=== PATIENT | female | born 1985 | race Caucasian/White ===

== ENCOUNTER 2019-12-05 10:21 | Emergency (ER) | payer MEDICAID ==
[~2019-12-05] VITALS: Ht 170.2 cm; Wt 75.0 kg
[2019-12-05 12:10] LABS: CLARITY,URINE SLIGHTLY CLOUDY (Clear); COLOR,URINE STRAW (Yellow); GLUCOSE, URINE NEGATIVE (Neg); KETONES,URINE NEGATIVE (Neg); LEUKOCYTE ESTERASE ,URINE NEGATIVE (Neg); NITRITES, URINE NEGATIVE (Neg); OCCULT BLOOD,URINE NEGATIVE (Neg); PROTEIN,URINE NEGATIVE (Neg); UROBILINOGEN,URINE 0.2 E.U/dL (0.2-1.0)
[2019-12-05 12:31] LABS: UA COLLECTION TYPE CLN CATCH MIDSTREAM
[2019-12-05 12:32] LABS: BACTERIA,URINE 1+ /HPF (Neg); RBC,URINE 0-2 /HPF (0-2); SQUAMOUS EPITHELIAL CELL,UR MANY /LPF (FEW)
[2019-12-05 12:33] LABS: WBC,URINE 0-4 /HPF (0-4)
[2019-12-05 13:03] VITALS: BP 132/69
== END 2019-12-05 13:01 | disposition home or self-care (01) ==
LOC: ER 10:22
DX: J06.9 Acute upper respiratory infection, unspecified (principal); R05 Cough; F17.200 Nicotine dependence, unspecified, uncomplicated; Z98.51 Tubal ligation status; Z98.890 Other specified postprocedural states; Z72.89 Other problems related to lifestyle
CPT/HCPCS: 36415; 81001; 87502; 87503; 99283

== ENCOUNTER 2021-11-03 08:52 | Emergency (ER) | payer MEDICAID ==
[~2021-11-03] VITALS: Ht 170.2 cm; Wt 77.3 kg
[2021-11-03 09:05] VITALS: BP 133/96
[2021-11-03] MEDS ORDERED: CETI10CA11 PO (09:36)
[2021-11-03] MEDS ORDERED: DIPH28.33 TOP (09:36)
== END 2021-11-03 10:00 | disposition home or self-care (01) ==
LOC: ER 08:52 → EEVIPCON 08:52 → ER 10:00
DX: L50.0 Allergic urticaria (principal); B00.1 Herpesviral vesicular dermatitis; Z98.890 Other specified postprocedural states; Z98.51 Tubal ligation status
CPT/HCPCS: 99282

== ENCOUNTER 2022-04-04 18:35 | Emergency (ER) | payer MEDICAID ==
[~2022-04-04] VITALS: Ht 170.2 cm; Wt 76.4 kg
[~2022-04-04 18:35] MED LIST: CETI10CA11 PO; DIPH28.33 TOP
[2022-04-04 18:48] VITALS: BP 128/89
[2022-04-04] MEDS ORDERED: LIDOcaine Viscous 15ml cup MM STA (19:41)
[2022-04-04] MEDS ORDERED: dexamethasone sod phosphate 10mg/ml inj PO STA (20:16)
[2022-04-04] MEDS ORDERED: LIDO20SO16 PO (20:25)
[2022-04-04] MEDS ORDERED: BENZ1LOZ74 PO (20:25)
== END 2022-04-04 20:48 | disposition home or self-care (01) ==
LOC: ER 18:36
DX: J02.9 Acute pharyngitis, unspecified (principal); B97.89 Other viral agents as the cause of diseases classified elsewhere; G89.29 Other chronic pain; Z98.51 Tubal ligation status; Z98.890 Other specified postprocedural states; Z72.89 Other problems related to lifestyle; Z88.6 Allergy status to analgesic agent; Z79.899 Other long term (current) drug therapy
CPT/HCPCS: 87081; 87880; 99283; J1100